=== PATIENT | male | born 1985 | race Caucasian/White ===

== ENCOUNTER 2017-01-12 03:22 | Emergency (ER) | payer BC ==
[~2017-01-12] VITALS: Ht 185.4 cm; Wt 89.8 kg
[~2017-01-12 03:22] MED LIST: FLEXERIL10 MG PO; LORTAB 5/500 501 TAB PO; TESSALON PERLE100 MG PO; VIBRAMYCIN 100100 MG PO; VICODIN 5/500 T1 TAB PO; VOLTAREN75 MG PO
--- OUTSIDE RECORDS SUMMARY | 2017-01-12 03:44 | External Medical Summary Rpt | CCD ---
Demographics Preferred Language Slovenian Marital Status Unknown Episcopalian Affiliation Unknown Race Unknown Ethnic Group Unknown Author Author , DONNA THOMPSON Address Unknown Phone [email or web address] Care Team Providers Care Office Machines Sales Representative Name Role Phone [facility] # Unavailable Unavailable [id number], [facility] # [id number] Purpose Continuity of Care Document - 02-05-2010 through 2016 Medications Na ND Rx Da Fi Fi Am Da Di Ph RX Ph St me C No te ll ll ou ys ag ar # ys at rm s nt no ma ic us Or Da si cy ia de te s n re d TA 00 12 12 0 20 10 [place] 71 GR Ac [place] 00 -3 -3 .0 L- 00 OS ti FL 40 0- 0- 00 MA 53 SE ve U 80 20 20 RT 7 R 75 08 10 10 TI 5 PH MO MG AR TH MA Y CA CY PS # UL E 10 05 91
--- OUTSIDE RECORDS SUMMARY | 2017-01-12 03:44 | External Medical Summary Rpt | CCD ---
Demographics Preferred Language Swedish Marital Status Unknown Episcopalian Affiliation Unknown Race Unknown Ethnic Group Unknown Author Author , DONNA THOMPSON Address Unknown Phone [email or web address] Team Providers Care Ec Teacher Name Role Phone [email or web address] # Unavailable Unavailable [id number], [facility] # [id number] Purpose Continuity of Care Document - 02-05-2010 [...] 0 20 10 [place] 71 GR Ac [place] 00 -3 -3 .0 L- 00 OS ti FL 40 0- 0- 00 MA 53 SE ve U 80 20 20 RT 7 R 75 08 10 10 TI 5 PH MO MG AR TH MA Y CA CY PS # UL E 10 05 91
--- OUTSIDE RECORDS SUMMARY | 2017-01-12 03:44 | External Medical Summary Rpt | CCD ---
Demographics Preferred Language Yi Marital Status Unknown Scientologist Affiliation Unknown Race Unknown Ethnic Group Unknown Author Author , DONNA THOMPSON Address Unknown Phone [email or web address] Care Team Providers Care Hand Winder Name Role Phone [facility] # Unavailable Unavailable [phone], [facility] # [id number] Purpose Continuity of Care Document - 02-05-2010 [...] 0 20 10 WA 71 GR Ac [place] 00 -3 -3 .0 L- 00 OS ti FL 40 0- 0- 00 MA 53 SE ve U 80 20 20 RT 7 R 75 08 10 10 TI 5 PH MO MG AR TH MA Y CA CY PS # UL E 10 05 91
--- OUTSIDE RECORDS SUMMARY | 2017-01-12 03:44 | External Medical Summary Rpt | CCD ---
Demographics Preferred Language Malay Marital Status Unknown Caodaism Affiliation Unknown Race Unknown Ethnic Group Unknown Author Author , DONNA THOMPSON Address Unknown Phone [email or web address] Care Team Providers Care Hat Ironer Name Role Phone [email or web address] # Unavailable Unavailable [id number], [facility] # [id number] Purpose Continuity of Care Document - 02-05-2010 [...] 0 20 10 [place] 71 GR Ac [place] 00 -3 -3 .0 L- 00 OS ti FL 40 0- 0- 00 MA 53 SE ve U 80 20 20 RT 7 R 75 08 10 10 TI 5 PH MO MG AR TH MA Y CA CY PS # UL E 10 05 91
--- OUTSIDE RECORDS SUMMARY | 2017-01-12 03:45 | External Medical Summary Rpt | CCD ---
Author Author , DONNA Organization DONNA Address Unknown Phone [email or web address] Immunization Name Date Rout CVX Reac Dose Comm Prov Is Faci e tion ent ider Refu lity Give sed n Td 01-2 9 999 Hist H112 No H112 (sara 7-19 oric lt), 99 al Info adso rmat rbed ion - Sour ce Unsp ecif ied MMR 08-2 3 999 Hist H196 No H196 2-19 oric 96 al Info rmat ion - Sour ce Unsp ecif ied
--- OUTSIDE RECORDS SUMMARY | 2017-01-12 03:45 | External Medical Summary Rpt | CCD ---
Author Author , DONNA Organization DONNA Address Unknown Phone [email or web address] Immunization Name Date Rout CVX Reac Dose [...]
[2017-01-12] MEDS ORDERED: PREDNISONE 20MG20 MG PO (04:59)
--- NOTE | 2017-01-12 05:00 | Emergency Room Report ---
History of Present Illness Time Seen by MD White Presenting Problem in Triage Pt arrived:Walked Presenting Problem:PT C/O RIGHT WRIST PAIN. DENIES ANY INJURY Onset of symptoms date/time:/ or onset unknown for:MEDICAL HX UNKNOWN Treatment Prior to Arrival: HOUSEKEEPER MANAGER Provided by: Sepsis Risk Assessment: Temp: 98.1 B/P: 133/80 MAP: 97 Pulse: 82 Resp: 16 Recent fever? N Clinical Suspician of Infection? N Mental Status: 1 - Regular (Normal Baseline) Sepsis Risk:Low Sepsis Risk Have you (or family members/close friends) recently traveled outside the [place]? N If Yes, where/when: Have you had exposure to infectious disease within the past month? N TB? Other? Specify: Source patient, RN notes reviewed, old records Exam Limitations no limitations Comment pt with progressive rt wrist pain since this am with pain with mov and at rest - pt with no other jt pain and is rt hand dominent Cardiac Chest Pain Chest pain indicative of cardiac No Timing/Duration this evening Severity moderate ALLERGIES Coded Allergies: No Known Allergies (01/12/17) Home Medications Reported Medications No Known Home Medications History Medical History General CAD? No Angina: No FL: No Hypertension? No Hyperlipidemia? No CHF? No DVT? No PE? No COPD? No Asthma? No Anemia? No GERD? No Gastric ulcers? No GI Bleed? No Hernia? No Thyroid Problems? No Hypothyroidism? No CVA? No Seizures? No Diabetes? No Renal Insuffiency? No End Stage Renal Disease? No UTI? No Stones? No BPH? No GB Disease: No Nephritic Syndrome? No Asplenia? No Hepatitis? No Sickle Cell Disease? No Arthritis? No Migraines? No Cataracts? No Glaucoma? No MRSA? No HIV? No TB? No Anxiety? No Depression? No Cancer? No More? No Immunization Hx DT/Tetanus 2004 Surgical Hx Previous Surgery?N Social History Smoking Hx Smoker: Never Smoker Tobacco: No Packs/day < 1 Pack Alcohol Alcohol: No Drugs none Review of Systems All Other Systems Reviewed and Negative Constitutional denies fever Eyes denies drainage ENT denies: ear discharge, epistaxis, throat pain. Respiratory denies cough, denies shortness of breath, denies wheezing Cardiovascular denies chest pain, denies syncope Gastrointestinal denies abdominal pain, denies diarrhea, denies vomiting Genitourinary denies: dysuria, frequency, hesitancy, hematuria. Musculoskeletal see HPI, denies back pain, joint pain, denies joint swelling, denies neck pain Skin denies rash Psychiatric/Neurological denies headache, denies seizure Physical Exam Vital Signs Vital Signs Date Time Temp Pulse Resp B/P Pulse O2 O2 Flow FiO2 Ox Delivery Rate 01/12 0330 98.1 82 16 133/80 98 - WBC >12,000 or <4,000 or 10% bands? 2 or more SIRS Criteria Met? B/P:133/80 MAP:97 Creatinine >2.0? UA output<0.5ml/kg/hr for 2 hrs? Platelet count >100,000? Lactate >2.0mmol/1? INR >1.2 or PTT > than 60 sec? Evidence of Organ Dysfunction? Provider documented clinical suspician of infection? N Sepsis Criteria Count: 0 Sepsis Risk: Low Sepsis Risk General Appearance no apparent distress Eye Exam - bilateral eye PERRL, bilateral eye EOMI Ear, Nose, Throat normal ENT inspection Neck supple Respiratory Status No: respiratory distress. 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 No Results/Orders Orders Procedure Date/time Status WRIST-3 VIEWS-RT 01/12 0333 Active XRAY/CT/US XRAY/CT/US XRAY wrist XR interpretation by reviewed by me Xray Results no fracture seen Departure Departure Time of Disposition 0451 Disposition DC Home or Self Care(routine) Clinical Impression Primary Impression: Tenosynovitis Condition STABLE Referrals ARPITA MARSH (Family) Patient Instructions DI for Tenosynovitis Additional Instructions wear splint and use meds and see pcp for follow up Discharge Counseling Counseled pt/family regarding diagnosis, test results, medications/RX, follow up needs Prescriptions Current Visit Scripts Prednisone (Prednisone 20MG) 20 MG PO BID #10 TAB ED Critical Care Critical Care No at [id number]
[2017-01-12 05:04] VITALS: BP 115/70
--- NOTE | 2017-01-12 05:22 | RADIOLOGY REPORT PS360 ---
WRIST-3 VIEWS-RT HISTORY: Pain PAIN ORDERING PHYSICIAN: Noemy Covarrubias MD PATIENT AGE: 31 years COMPARISON: None FINDINGS: No fracture or dislocation. No lytic or blastic change. There is normal mineralization.. The joint spaces are well-preserved. No significant degenerative/arthritic changes. No erosive changes evident.. IMPRESSION: Negative wrist
== END 2017-01-12 05:05 | disposition home or self-care (01) ==
LOC: ER 03:22
DX: M65.9 Synovitis and tenosynovitis, unspecified (principal); M25.531 Pain in right wrist